=== PATIENT | female | born 1955 | race African-American/Black ===

== ENCOUNTER → 2016-08-29 | Day surgery (SDC) | payer BC, MEDICARE ==
[~2016-08-29] MED LIST: FENTANYL PF 100 MCG/2 ML VIAL. IV PRN; FLUO20CA8 PO; HYDR12.53 PO; HYDROMORPHONE 2 MG/ML VIAL. IV PRN; IV RINGERS,LACTATED 1000ML 1,000 ML IV SCH; LIDOCAINE 1% 1 ML SYRINGE. ID PRN; LIDOCAINE 2% PF Vial for OR 5 ML VIAL. ONE; MORPHINE SULFATE 2 MG/ML DISP.SYRIN. IV PRN; ONDANSETRON PF 4 MG/2 ML VIAL. IV PRN; PROCHLORPERAZINE 10 MG/2 ML VIAL. IV PRN; PROPOFOL 40 ML IV ONE
[2016-08-29 13:55] VITALS: BP 115/79
== END | disposition home or self-care (01) ==
LOC: ENDOS 11:52
PROVIDERS: ATTEND Internal Medicine Gastroenterology
DX: Z12.11 Encounter for screening for malignant neoplasm of colon (principal); K64.0 First degree hemorrhoids; K57.30 Diverticulosis of large intestine without perforation or abscess without bleeding; F41.9 Anxiety disorder, unspecified; F32.9 Major depressive disorder, single episode, unspecified; I10 Essential (primary) hypertension; M19.90 Unspecified osteoarthritis, unspecified site; Z83.3 Family history of diabetes mellitus; Z87.39 Personal history of other diseases of the musculoskeletal system and connective tissue
CPT/HCPCS: 45378; J2704

== ENCOUNTER → 2016-12-13 | Outpatient (CLI) | payer BC, MEDICARE ==
[2016-08-29 13:55] VITALS: BP 115/79
[~2016-12-13] MED LIST changes: +CHOL10003 PO; -FENTANYL PF 100 MCG/2 ML VIAL. IV PRN; -HYDROMORPHONE 2 MG/ML VIAL. IV PRN; +IOHEXOL 180 MG/ML 10 ML VIAL. ONE; -IV RINGERS,LACTATED 1000ML 1,000 ML IV SCH; -LIDOCAINE 1% 1 ML SYRINGE. ID PRN; -LIDOCAINE 2% PF Vial for OR 5 ML VIAL. ONE; +MELO15TA23 PO; -MORPHINE SULFATE 2 MG/ML DISP.SYRIN. IV PRN; +MULT-681 PO; +MULT400C3 PO; -ONDANSETRON PF 4 MG/2 ML VIAL. IV PRN; -PROCHLORPERAZINE 10 MG/2 ML VIAL. IV PRN; -PROPOFOL 40 ML IV ONE; +methylPREDNISolone ACETATE 40 MG/ML VIAL. ONE; +methylPREDNISolone ACETATE 80 MG/ML VIAL. ONE
--- NOTE | 2016-12-14 05:43 | PAIN ---
DATE OF SERVICE: 12/13/2016 INITIAL CONSULTATION FOR PAIN CLINIC CHIEF COMPLAINT: Low back and right lower extremity pain. HISTORY OF PRESENT ILLNESS: The patient is a 61-year-old female who presents with history of pain in the low back and right lower extremity for about 4 years, worse over the past 1 year. The patient reports it is increasing with activity, not a result of any specific injury or action that she is aware of. It just came up over time. She works on her feet most of her days. 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 The patient reports it is tingling, numbness, radiating pain, aching, worse at night as well, is waking her from sleep significantly, does not affect her bowel or bladder control, but does affect her ability to walk or stand more than a few hours at work. The patient is taking Tylenol PM as well as Advil PM, gabapentin 100 mg, none of these, she reports, helps the pain decrease. The patient has had no formal physical therapy currently. She has had some chiropractic treatment in the past, which helped, but only for about a day or so. The patient reports no loss of motor function, but significant fatigability in the right lower extremity, also some pain in the right upper extremity in a similar radicular fashion there. PAST MEDICAL HISTORY: Significant for hypertension and arthritis. PREVIOUS SURGERY: Include hysterectomy, cholecystectomy and appendectomy. CURRENT MEDICATIONS: Include daily vitamins, fluoxetine, hydrochlorothiazide, gabapentin, Tylenol and ibuprofen. ALLERGIES: THE PATIENT IS ALLERGIC TO CODEINE. FAMILY HISTORY: Significant for diabetes and cancers. SOCIAL HISTORY: The patient does not drink alcohol, does not smoke. She is , lives with her spouse and lives locally in [place], [place]. 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 REVIEW OF SYSTEMS: Positive for those items mentioned in history of present illness complete, full and well documented on the patient's chart. The patient did have an MRI scan of the lumbar spine showing moderate right greater than left L5-S1 neural foraminal compromise, ____ right L5 nerve root in the neural foramen by bulging and protrusion, mild degenerative disk disease at L5-S1 as well. PHYSICAL EXAMINATION: VITAL SIGNS: Today, the patient's blood pressure is 137/81, pulse is 79, respirations 18, temperature 97.9 degrees Fahrenheit. Height is 5 feet 3 inches, weighs 143 pounds. GENERAL: The patient is awake, alert, oriented, appropriate, very pleasant demeanor. HEENT: Head shows normocephalic, atraumatic. Extraocular movements are intact and symmetrical. Oral cavity, mucous membranes are moist and pink. Dentition is intact. NECK: Shows anterior throat is supple without palpable lymphadenopathy noted. Swallow reflex is symmetrical. CHEST: Shows normal on inspection. Breath sounds are clear to auscultation bilaterally. HEART: Shows S1 and S2 clear. No murmurs auscultated. ABDOMEN: Soft, nontender, nondistended. No palpable organomegaly. No rebound or guarding demonstrated. BACK: Shows spine grossly midline. Normal appearing thoracic kyphosis and lumbar lordotic curvature. The patient's back shows no previous bruises, lesions, rashes or scars. Lumbar paraspinous muscle shows some moderate tenderness to palpation throughout the middle and lower distribution to paraspinous muscles bilaterally, but diffusely without radiation, without atrophy, hypertrophy. No tenderness over the spinous processes, sacrum or sacroiliac regions. The patient has good rotational motion of the lumbar spine, both laterally greater than 10 degrees right and left as well as extension greater than 10 degrees and forward flexion at 45 degrees without pain reported. EXTREMITIES: The patient's lower extremities show deep tendon reflexes at 2+ in the patellar tendons, 1+ tendo calcaneus tendons. Motor exam is approximately 4 on a scale of 5 with right dorsiflexion and extension and 5/5 on the left. Quadriceps and hamstring flexion are 5/5 bilaterally. The patient's peripheral pulses are 1+ posterior tibial and dorsalis pedis pulses. No peripheral edema is noted. No clubbing, no cyanosis. Lower extremities are warm and dry to touch, equal in color and appearance. Straight leg raise noted to be negative for reproduction of radicular symptoms bilaterally. Gaenslen's and Johs's maneuvers are negative bilaterally as well. The patient is able to stand, stand on her toes without difficulty or loss of balance and is walking with a normal appearing gait for short distance in the office, not using any assistive devices currently. IMPRESSION: 1. This is a 61-year-old female who presents with a history of low back and right lower extremity pain in a radicular fashion. 2. MRI scan of lumbar spine as noted. 3. Hypertension. 4. Arthritis. PLAN: Options were discussed with the patient including conservative medical management, physical therapy and interventional techniques. She would like to pursue interventional techniques. We discussed a lumbar epidural steroid injection using description as well as anatomical models to describe the procedure. Risks were then discussed including, but not limited to bleeding, infection, possibility of epidural hematoma and subsequent neurological compromise, dural puncture, headaches, spinal cord and/or nerve damage, side effects of steroid medication and poor results regarding pain control. The patient understands and wishes to proceed. The patient will return to clinic in approximately 2 weeks for followup. She was counseled as to return appointment, activity level and side effects to be aware of. DIAGNOSIS: Lumbar radiculopathy with lumbar degenerative disease. PROCEDURE: Lumbar epidural steroid injection in translaminar approach at the L5-S1 level using C-arm fluoroscopic guidance under sterile prep and drape using local anesthetic. MEDICATION INJECTED: 120 mL Depo-Medrol plus 10 mL preservative free normal saline, 2 mL of Isovue for contrast. CONDITION AT DISCHARGE: Stable. The patient tolerated the procedure well, had no complications. CHRISTEL STEVENS MD DR: MARISSA/wagner JOB#: [id number] / [id number] Andrew Zhong
== END | disposition home or self-care (01) ==
LOC: PNCL 07:20
PROVIDERS: ATTEND Anesthesiology
DX: M51.16 Intervertebral disc disorders with radiculopathy, lumbar region (principal); M19.90 Unspecified osteoarthritis, unspecified site; I10 Essential (primary) hypertension; F41.9 Anxiety disorder, unspecified; F32.9 Major depressive disorder, single episode, unspecified; Z83.3 Family history of diabetes mellitus; Z90.710 Acquired absence of both cervix and uterus; Z90.49 Acquired absence of other specified parts of digestive tract; Z88.6 Allergy status to analgesic agent; Z87.891 Personal history of nicotine dependence
CPT/HCPCS: 62323; J1030; J1040